=== PATIENT | male | born 1945 | race Caucasian/White ===

== ENCOUNTER → 2016-12-23 | Outpatient (CLI) | payer MEDICARE ==
--- NOTE | ~2016-12-23 | PUL ---
PATIENT'S NAME: [facility] AGE: 71 Y [address] ROOM: [place] [id number] LOCATION: [facility] ADMIT DATE: 12/23/2016 Pulmonary DISCHARGE DATE: FAMILY PHYSICIAN: Liana Jimenez APRN ATTENDING PHYSICIAN: Phil Yap NAME OF PROCEDURE: Sleep Study DATE OF PROCEDURE: 12/23/16 TECH: Sawyer Toth, [facility] TEST #: [facility] [place] [id number] MEDICAL HISTORY: The patient is a 71-year-old overweight gentleman with persistent daytime sleepiness. SLEEP STAGE SUMMARY: The patient was studied for 465 minutes of which he slept 390 minutes. He fell asleep in 26 minutes and slept for 84% of the night. Sleep architecture revealed a decline in slow wave sleep. RESPIRATORY SUMMARY: Oxygen saturations ranged from 68-94%. This study was done to titrate PAP therapy. CPAP was initiated at 8 cm but failed to control the respiratory events. Patient was then switched to BiPAP. BiPAP at produced an apnea/hypopnea index normal at 3 events per hour. EKG SUMMARY: Paced rhythm was noted with irregular beats. LIMB MOVEMENT SUMMARY: Frequent periodic limb movements were noted. These are probably clinically relevant based on their number. SUMMARY: 1. Severe obstructive sleep apnea requiring BiPAP at . 2. Probable periodic limb movement disorder. PLAN: Patient will receive results from the ordering provider. MD CRISTIN WINCHESTER/ PATIENT'S NAME: [facility] AGE: 71 Y [address] ROOM: [place] [id number] LOCATION: [facility] ADMIT DATE: 12/23/2016 Pulmonary DISCHARGE DATE: FAMILY PHYSICIAN: Liana Jimenez APRN ATTENDING PHYSICIAN: Phil Yap /[id number] dtt: 01/02/17 1303 , Tye Allisond: 12/25/16 1626
== END | disposition disaster alternative care site (69) ==
LOC: GSLP 20:11
DX: E66.3 Overweight (principal); G47.33 Obstructive sleep apnea (adult) (pediatric); R09.02 Hypoxemia